=== PATIENT | female | born 1970 | race Caucasian/White ===

== ENCOUNTER 2017-01-16 04:27 | Emergency (ER) | payer MEDICAID ==
[~2017-01-16] VITALS: Ht 165.1 cm; Wt 61.0 kg
[~2017-01-16 04:27] MED LIST: ACET-2178
[2017-01-16] MEDS ORDERED: IBUPROFEN 600MG TABLET PO ONE (08:15)
[2017-01-16 08:24] VITALS: BP 154/89
[2017-01-16 09:17] LABS: GLUCOSE URINE NEGATIVE (NEGATIVE); KETONES URINE NEGATIVE (NEGATIVE); LEUKOCYTE ESTERASE URINE 1+ (NEGATIVE); NITRITE URINE NEGATIVE (NEGATIVE); PROTEIN URINE 3+ (NEGATIVE); SPECIFIC GRAVITY URINE 1.023 (1.005-1.030)
[2017-01-16 09:20] LABS: CLARITY URINE CLOUDY (CLEAR); COLOR URINE BLOODY (YELLOW); OCCULT BLOOD URINE 4+ (NEGATIVE)
== END 2017-01-16 10:02 | disposition home or self-care (01) ==
LOC: ER 08:01
DX: N39.0 Urinary tract infection, site not specified (principal); N80.9 Endometriosis, unspecified; Z90.710 Acquired absence of both cervix and uterus; Z98.890 Other specified postprocedural states
CPT/HCPCS: 81001; 81025; 99283

== ENCOUNTER 2018-01-04 14:44 | Emergency (ER) | payer MEDICAID ==
[~2018-01-04] VITALS: Ht 165.1 cm; Wt 60.0 kg
[2018-01-04 14:53] VITALS: BP 167/91
== END 2018-01-04 15:16 | disposition home or self-care (01) ==
LOC: ER 14:53
DX: H60.91 Unspecified otitis externa, right ear (principal); I10 Essential (primary) hypertension
CPT/HCPCS: 99283

== ENCOUNTER 2018-01-19 09:17 | Emergency (ER) | payer MEDICAID ==
[~2018-01-19] VITALS: Ht 165.1 cm; Wt 61.0 kg
[2018-01-19 11:29] VITALS: BP 131/83
== END 2018-01-19 11:31 | disposition home or self-care (01) ==
LOC: ER 09:17
DX: H60.91 Unspecified otitis externa, right ear (principal)
CPT/HCPCS: 99283

== ENCOUNTER 2018-06-14 10:33 | Emergency (ER) | payer MEDICAID ==
[~2018-06-14] VITALS: Ht 167.6 cm; Wt 68.0 kg
[2018-06-14] MEDS ORDERED: DEXAMETHASONE 10 MG/ML VIAL IM ONE (11:45)
[2018-06-14] MEDS ORDERED: KETOROLAC 60MG/2ML VIAL IM ONE (11:45)
[2018-06-14 13:36] VITALS: BP 145/78
== END 2018-06-14 13:37 | disposition home or self-care (01) ==
LOC: ER 11:02
DX: J03.90 Acute tonsillitis, unspecified (principal); Z98.890 Other specified postprocedural states; Z90.710 Acquired absence of both cervix and uterus
CPT/HCPCS: 81025; 87070; 87430; 96372; 99283; J1100; J1885

== ENCOUNTER 2019-01-11 10:41 | Emergency (ER) | payer MEDICAID ==
[~2019-01-11] VITALS: Ht 165.1 cm; Wt 72.0 kg
[2019-01-11 12:30] VITALS: BP 168/98
== END 2019-01-11 12:33 | disposition home or self-care (01) ==
LOC: ER 10:41
DX: S90.562A Insect bite (nonvenomous), left ankle, initial encounter (principal); S90.561A Insect bite (nonvenomous), right ankle, initial encounter; I10 Essential (primary) hypertension; W57.XXXA Bitten or stung by nonvenomous insect and other nonvenomous arthropods, initial encounter; Y93.89 Activity, other specified; Y92.89 Other specified places as the place of occurrence of the external cause
CPT/HCPCS: 99283

== ENCOUNTER 2022-03-16 16:25 | Emergency (ER) | payer MEDICAID ==
[~2022-03-16] VITALS: Ht 162.6 cm; Wt 61.0 kg
[~2022-03-16 16:25] MED LIST changes: -ACET-2178; +TOPUD
[2022-03-16 16:39] VITALS: BP 166/101
[2022-03-16] MEDS ORDERED: CARB15DR63 EACH EAR (20:21)
[2022-03-16] MEDS ORDERED: CIPHCO EACH EAR (20:21)
== END 2022-03-16 20:42 | disposition home or self-care (01) ==
LOC: ER 16:25
DX: H60.93 Unspecified otitis externa, bilateral (principal); H61.23 Impacted cerumen, bilateral; I10 Essential (primary) hypertension
CPT/HCPCS: 69210; 99283

== ENCOUNTER 2022-05-27 19:12 | Emergency (ER) | payer MEDICAID ==
[~2022-05-27] VITALS: Ht 165.1 cm; Wt 64.5 kg
[~2022-05-27 19:12] MED LIST changes: +CARB15DR63 EACH EAR; +CIPHCO EACH EAR
[2022-05-27 19:28] VITALS: BP 173/97
[2022-05-28] MEDS ORDERED: IBUP-2028 MT (00:03)
[2022-05-28] MEDS ORDERED: ACETAMINOPHEN 325MG TABLET PO ONE (00:15)
== END 2022-05-28 00:25 | disposition home or self-care (01) ==
LOC: ER 19:12
DX: B34.9 Viral infection, unspecified (principal); R05.9 Cough, unspecified; R09.81 Nasal congestion; R50.9 Fever, unspecified; I10 Essential (primary) hypertension; Z98.890 Other specified postprocedural states; Z90.710 Acquired absence of both cervix and uterus; Z79.899 Other long term (current) drug therapy; Z20.822 Contact with and (suspected) exposure to COVID-19
CPT/HCPCS: 81025; 87426; 87804; 99283; C9803

== ENCOUNTER 2023-04-27 08:39 | Emergency (ER) | payer MEDICAID ==
[~2023-04-27] VITALS: Ht 160 cm; Wt 75.0 kg
[~2023-04-27 08:39] MED LIST changes: +IBUP-2028 MT
[2023-04-27 08:49] VITALS: O2SAT 99
[2023-04-27] MEDS ORDERED: CARB-274 EACH EAR (09:04)
[2023-04-27 09:33] VITALS: BP 138/89; PULSE 79; RESP 18; TEMP 98.6
== END 2023-04-27 09:34 | disposition home or self-care (01) ==
LOC: ER 08:39
DX: H92.03 Otalgia, bilateral (principal); I10 Essential (primary) hypertension; Z98.890 Other specified postprocedural states
CPT/HCPCS: 99282